=== PATIENT | male | born 1930 | race Caucasian/White ===

== ENCOUNTER → 2016-09-06 18:06 | Emergency (ER) | payer MEDICARE ==
[~2016-09-06 18:06] MED LIST: HYDROcodone/ACETAMIN 5-325 MG* 1 TAB PO ONE; Ketorolac INJ* 30 MG/ML 1 ML VIAL IV ONE
--- NOTE | 2016-09-06 20:48 | RAD ---
INDICATION: Trauma, back pain. COMPARISON: There are no prior studies available for comparison. TECHNIQUE: Contiguous axial sections were obtained beginning above the T11 vertebra and continuing through the L5-S1 disc space. Images were reconstructed in the sagittal and coronal planes. FINDINGS: There is a mild to moderate lumbar scoliosis convex toward the right in the upper lumbar region and toward the left in the lower lumbar region. There is a mild chronic appearing compression fracture involving the inferior endplate of the L1 vertebral body. No acute fracture is seen. At the L1-L2 level there is a mild broad-based disc bulge which causes mild spinal canal narrowing. There is mild neural foraminal narrowing on the left side. At the L2-L3 level there is a [id number] broad-based disc bulge and mild hypertrophic changes within the facet joints which causes mild to moderate spinal canal narrowing. There is mild bilateral neural foraminal narrowing. At the L3-L4 level there is a moderate broad-based disc bulge and mild hypertrophic changes within the facet joints which causes moderate to severe spinal canal narrowing. There is mild to moderate bilateral neural foraminal narrowing. At the L4-L5 level there is a moderate broad-based disc bulge and moderate endplate hypertrophic changes which cause severe spinal canal narrowing and moderate bilateral neural foraminal narrowing. At the L5-S1 level there is a mild broad-based disc bulge and moderate hypertrophic changes within the facet joints. There is mild spinal canal narrowing and mild to moderate bilateral neural foraminal narrowing. Incidental note is made of moderate to severe calcific plaque present within the abdominal aorta. No aneurysm is present. IMPRESSION: 1. NO EVIDENCE FOR ACUTE FRACTURE. 2. DIFFUSE DEGENERATIVE DISC DISEASE AND FACET OSTEOARTHRITIS GIVING RISE TO MILD SPINAL CANAL NARROWING AT THE L1-L2 LEVEL, MILD TO MODERATE SPINAL CANAL NARROWING AT THE L2-L3 LEVEL, MODERATE TO SEVERE SPINAL CANAL NARROWING AT THE L3-L4, SEVERE SPINAL CANAL NARROWING AT THE L4-L5 LEVEL AND MILD SPINAL CANAL NARROWING AT THE L5-S1 LEVEL.
[2016-09-06 21:56] LABS: Hematocrit 46 % (42-52); Mean Corpuscular HGB Conc 33 g/dl (31-36); Mean Corpuscular Hemoglobin 29 pg (27-31); Mean Corpuscular Volume 89 fL (80-94); Mean Platelet Volume 7 um3 (7.4-10.4); Red Blood Count 5.14 10^6/ul (4.0-5.4); Red Cell Distribution Width 15 % (10.5-15)
[2016-09-06 22:12] LABS: Albumin 4.3 g/dL (3.2-5.2); BUN/Creatinine Ratio 17.1 (8-20); Calcium 9.3 mg/dL (8.6-10.3); EGFR African American 80.8 (>60); EGFR Non-African American 62.8 (>60); Globulin 3.3 g/dL (2-4); Magnesium 2.1 mg/dL (1.9-2.7); Potassium 4.3 mmol/L (3.5-5.0); Total Bilirubin 0.6 mg/dL (0.2-1.0); Total Protein 7.6 g/dL (6.4-8.9)
[2016-09-06 22:14] LABS: Troponin I 0.01 ng/mL (<0.04)
[2016-09-06 22:56] LABS: TSH (Thyroid Stimulating Horm) 1.73 mcIU/mL (0.34-5.60)
[2016-09-06 23:47] VITALS: BP 109/74
--- NOTE | 2016-09-07 14:18 | ED ---
Jesus Thompson Matthew, scribed for Christopher Childs MD on 09/06/16 at 2118 . Back Pain - HPI Summary HPI Summary: An 86 y/o male presents to the ED with lower back pain since 17:00. The pain is worse with movement and rated 9/10 in severity. The patient states that he fell , while he was trying to put the jules into his car door. He's unsure why or how he fell, but states the next thing he knew he was on his back. He denies head trauma and loss of consciousness The patient is on Warfarin and Abx for a recent UTI. The patient has a Hx of dementia and HLD. - History of Current Complaint Chief Complaint: EDBackInjuryPain Stated Complaint: FALL/BACK PAIN Time Seen by Provider: 09/06/16 19:16 Hx Obtained From: Patient Onset/Duration: Sudden Onset, Lasting Hours, Still Present Onset/Duration: Started Days Ago, Traumatic, Still Present Timing: Constant Back Pain Location: Is Discrete @ - lower back Severity Initially: Moderate Severity Currently: Moderate Pain Intensity: 9 Pain Scale Used: 0-10 Numeric Aggravating Symptom(s): Movement Associated Signs And Symptoms: Negative: Abdominal Pain - Allergies/Home Medications Allergies/Adverse Reactions: Allergies Allergy/AdvReac Type Severity Reaction Status Date / Time No Known Allergies Allergy Verified 09/06/16 19:45 PMH/Surg Hx/FS Hx/Imm Hx Cardiovascular History: Reports: Hx Angina, Hx Atrial Fibrillation, Hx Coronary Artery Disease - 2014 SURGERY, Hx Hypercholesterolemia, Hx Hypertension - W/MEDS Denies: Hx Pacemaker/ICD Comment Only: Other Cardiovascular Problems/Disorders - FOLLOWED BY DR GUERRA Respiratory History: Reports: Hx Chronic Bronchitis, Hx Chronic Obstructive Pulmonary Disease (COPD) Sensory History: Reports: Hx Cataracts - BILATERAL, Hx Contacts or Glasses - GLASSES, Hx Hearing Problem Denies: Hx Hearing Aid Opthamlomology History: Reports: Hx Cataracts - BILATERAL, Hx Contacts or Glasses - GLASSES Neurological History: Reports: Hx Dementia - mild, Other Neuro Impairments/ Disorders - ON DAILY MEDS FOR ALZHEIMER'S Psychiatric History: Denies: Hx Panic Disorder - Surgical History Surgery Procedure, Year, and Place: APPENDIX 35 YRS AGO. 2004?? LEFT WRIST ORIF Hx Anesthesia Reactions: No - Immunization History Date of Tetanus Vaccine: Unk Date of Influenza Vaccine: Fall 2011 Infectious Disease History: No Infectious Disease History: Denies: Traveled Outside the [place] in Last 30 Days - Family History Known Family History: Positive: Cardiac Disease, Hypertension - Social History Alcohol Use: None Hx Substance Use: No Substance Use Type: Reports: None Hx Tobacco Use: Yes Smoking Status (MU): Former Smoker Type: Cigarettes Amount Used/How Often: 1PPD 50 + YEARS Have You Smoked in the Last Year: No Review of Systems Constitutional: Negative Eyes: Negative ENT: Negative Cardiovascular: Negative Respiratory: Negative Gastrointestinal: Negative Negative: Abdominal Pain Genitourinary: Negative Positive: Myalgia - lower back pain Skin: Negative Neurological: Negative Psychological: Normal All Other Systems Reviewed And Are Negative: Yes Physical Exam Triage Information Reviewed: Yes Vital Signs On Initial Exam: Initial Vitals Temp Pulse Resp BP Pulse Ox 97.4 F 84 20 153/72 98 09/06/16 18:09 09/06/16 18:09 09/06/16 18:09 09/06/16 18:09 09/06/16 18:09 Vital Signs Reviewed: Yes Appearance: Positive: Well-Appearing, No Pain Distress Skin: Positive: Warm, Skin Color Reflects Adequate Perfusion, Dry Head/Face: Positive: Normal Head/Face Inspection Eyes: Positive: Normal ENT: Positive: Normal ENT inspection Neck: Positive: Supple, Nontender Respiratory/Lung Sounds: Positive: Clear to Auscultation, Breath Sounds Present Cardiovascular: Positive: RRR Abdomen Description: Positive: Nontender, Soft Bowel Sounds: Positive: Present Musculoskeletal: Positive: Other - Mild tender over the lumbar spine; negative straight leg raise. Neurological: Positive: Normal, Sensory/Motor Intact, Alert, Oriented to Person Place, Time Psychiatric: Positive: Affect/Mood Appropriate - [place] Coma Scale Coma Scale Total: 15 Diagnostics - Vital Signs Vital Signs Temp Pulse Resp BP Pulse Ox 09/06/16 19:40 98.0 F 68 16 124/69 95 09/06/16 18:09 97.4 F 84 20 153/72 98 - Laboratory Lab Results: Lab Results 09/06/16 09/06/16 09/06/16 Range/Units 21:45 21:45 21:45 WBC 13.0 H (3.5-10.8) 10^3/ul RBC 5.14 (4.0-5.4) 10^6/ul Hgb 15.0 (14.0-18.0) g/dl Hct 46 (42-52) % MCV 89 (80-94) fL MCH 29 (27-31) pg MCHC 33 (31-36) g/dl RDW 15 (10.5-15) % Plt Count 288 (150-450) 10^3/ul MPV 7 L (7.4-10.4) um3 Neut % (Auto) 70.8 (38-83) % Lymph % (Auto) 18.5 L (25-47) % [place] % (Auto) 9.1 H (1-9) % Eos % (Auto) 1.0 (0-6) % Baso % (Auto) 0.6 (0-2) % Absolute Neuts (auto) 9.2 H (1.5-7.7) 10^3/ul Absolute Lymphs (auto) 2.4 (1.0-4.8) 10^3/ul Absolute Monos (auto) 1.2 H (0-0.8) 10^3/ul Absolute Eos (auto) 0.1 (0-0.6) 10^3/ul Absolute Basos (auto) 0.1 (0-0.2) 10^3/ul Absolute Nucleated RBC 0 10^3/ul Nucleated RBC % 0 INR (Anticoag Therapy) (0.89-1.11) Sodium 130 L (133-145) mmol/L Potassium 4.3 (3.5-5.0) mmol/L Chloride 98 L (101-111) mmol/L Carbon Dioxide 26 (22-32) mmol/L Anion Gap 6 (2-11) mmol/L BUN 19 (6-24) mg/dL Creatinine 1.11 (0.67-1.17) mg/dL Est GFR ( Amer) 80.8 (>60) Est GFR (Non-Af Amer) 62.8 (>60) BUN/Creatinine Ratio 17.1 (8-20) Glucose 102 H (70-100) mg/dL Lactic Acid 1.1 (0.5-2.0) mmol/L Calcium 9.3 (8.6-10.3) mg/dL Magnesium 2.1 (1.9-2.7) mg/dL Total Bilirubin 0.60 (0.2-1.0) mg/dL AST 27 (13-39) U/L ALT 23 (7-52) U/L Alkaline Phosphatase 90 (34-104) U/L Troponin I 0.01 (<0.04) ng/mL Total Protein 7.6 (6.4-8.9) g/dL Albumin 4.3 (3.2-5.2) g/dL Globulin 3.3 (2-4) g/dL Albumin/Globulin Ratio 1.3 (1-3) TSH 1.73 (0.34-5.60) mcIU/mL 09/06/16 Range/Units 21:45 WBC (3.5-10.8) 10^3/ul RBC (4.0-5.4) 10^6/ul Hgb (14.0-18.0) g/dl Hct (42-52) % MCV (80-94) fL MCH (27-31) pg MCHC (31-36) g/dl RDW (10.5-15) % Plt Count (150-450) 10^3/ul MPV (7.4-10.4) um3 Neut % (Auto) (38-83) % Lymph % (Auto) (25-47) % [place] % (Auto) (1-9) % Eos % (Auto) (0-6) % Baso % (Auto) (0-2) % Absolute Neuts (auto) (1.5-7.7) 10^3/ul Absolute Lymphs (auto) (1.0-4.8) 10^3/ul Absolute Monos (auto) (0-0.8) 10^3/ul Absolute Eos (auto) (0-0.6) 10^3/ul Absolute Basos (auto) (0-0.2) 10^3/ul Absolute Nucleated RBC 10^3/ul Nucleated RBC % INR (Anticoag Therapy) 2.42 H (0.89-1.11) Sodium (133-145) mmol/L Potassium (3.5-5.0) mmol/L Chloride (101-111) mmol/L Carbon Dioxide (22-32) mmol/L Anion Gap (2-11) mmol/L BUN (6-24) mg/dL Creatinine (0.67-1.17) mg/dL Est GFR ( Amer) (>60) Est GFR (Non-Af Amer) (>60) BUN/Creatinine Ratio (8-20) Glucose (70-100) mg/dL Lactic Acid (0.5-2.0) mmol/L Calcium (8.6-10.3) mg/dL Magnesium (1.9-2.7) mg/dL Total Bilirubin (0.2-1.0) mg/dL AST (13-39) U/L ALT (7-52) U/L Alkaline Phosphatase (34-104) U/L Troponin I (<0.04) ng/mL Total Protein (6.4-8.9) g/dL Albumin (3.2-5.2) g/dL Globulin (2-4) g/dL Albumin/Globulin Ratio (1-3) TSH (0.34-5.60) mcIU/mL Result Diagrams: 09/06/16 21:45 09/06/16 21:45 Lab Statement: Any lab studies that have been ordered have been reviewed, and results considered in the medical decision making process. - CT Lumbar Spine CT CT Interpretation: No Acute Changes - IMPRESSION: 1. NO EVIDENCE FOR ACUTE FRACTURE. 2. DIFFUSE DEGENERATIVE DISC DISEASE AND FACET OSTEOARTHRITIS GIVING RISE TO MILD SPINAL CANAL NARROWING AT THE L1-L2 LEVEL, MILD TO MODERATE SPINAL CANAL NARROWING AT THE L2-L3 LEVEL, MODERATE TO SEVERE SPINAL CANAL NARROWING AT THE L3-L4, SEVERE SPINAL CANAL NARROWING AT THE L4-L5 LEVEL AND MILD SPINAL CANAL NARROWING AT THE L5-S1 LEVEL. CT Interpretation Completed By: Radiologist - EKG 22:14 Cardiac Rate: NL - 76 bpm EKG Rhythm: Atrial Fibrillation EKG Interpretation: LBBB Back Pain Course/Dx - Course Course Of Treatment: Mr. Alvarez is a difficult historian as he is a bit demented but I believe this was a mechanical fall. I did monitor him and check labs to be on the safe side and they were negative. Including a troponing 5 hours after the incident. He has a lot of arthritis in his back on CT as one would expect but no acute injury and I believe this to be a strain of the low back. He seemed to do OK with a [place] and I will try that as an outpatient. - Diagnoses Provider Diagnoses: Low back strain Discharge - Discharge Plan Condition: Stable Disposition: HOME Prescriptions: HYDROcodone/ACETAMIN 5-325 MG* [[place] 5-325 TAB*] 1 tab PO Q6H PRN #20 tab MDD 4 PRN Reason: Pain Patient Education Materials: Hydrocodone/Acetaminophen (By mouth), Low Back Strain (ED) Referrals: Otf Meza MD [Primary Care Provider] - 3 Days Additional Instructions: Please follow-up with your primary care physician in 3 days. The documentation as recorded by the Jesus conner Matthew accurately reflects the service I personally performed and the decisions made by me, Christopher Childs MD.
== END | disposition home or self-care (01) ==
LOC: ED 18:06
DX: S39.012A Strain of muscle, fascia and tendon of lower back, initial encounter (principal); W19.XXXA Unspecified fall, initial encounter; Y93.9 Activity, unspecified; Y92.9 Unspecified place or not applicable; Y99.9 Unspecified external cause status; Z87.891 Personal history of nicotine dependence
CPT/HCPCS: 36415; 72131; 80053; 83605; 83735; 84443; 84484; 85025; 85610; 93005; 96374; 99283; J1885

== ENCOUNTER → 2016-09-28 08:24 | Emergency (ER) | payer MEDICARE ==
[~2016-09-28 08:24] MED LIST changes: -HYDROcodone/ACETAMIN 5-325 MG* 1 TAB PO ONE; -Ketorolac INJ* 30 MG/ML 1 ML VIAL IV ONE; +NS 0.9% 1000 ML* 2,000 ML IV ONE
[2016-09-28 08:55] LABS: Hematocrit 48 % (42-52); Hemoglobin 15.6 g/dl (14.0-18.0); Mean Corpuscular HGB Conc 33 g/dl (31-36); Mean Corpuscular Hemoglobin 29 pg (27-31); Mean Corpuscular Volume 89 fL (80-94); Mean Platelet Volume 8 um3 (7.4-10.4); Red Blood Count 5.31 10^6/ul (4.0-5.4); Red Cell Distribution Width 15 % (10.5-15); White Blood Count 11.6 10^3/ul (3.5-10.8)
[2016-09-28 09:05] LABS: Urine Bacteria Absent (Absent); Urine Bilirubin Negative (Negative); Urine Glucose Negative (Negative); Urine Nitrite Negative (Negative)
[2016-09-28 09:16] LABS: ALT 20 U/L (7-52); Albumin 4.1 g/dL (3.2-5.2); Alkaline Phosphatase 119 U/L (34-104); BUN/Creatinine Ratio 17.7 (8-20); Blood Urea Nitrogen 17 mg/dL (6-24); CO2 Carbon Dioxide 24 mmol/L (22-32); Calcium 9.4 mg/dL (8.6-10.3); Chloride 104 mmol/L (101-111); Creatine Kinase 40 U/L (10-223); EGFR African American 95.5 (>60); EGFR Non-African American 74.3 (>60); Globulin 3.5 g/dL (2-4); Glucose 95 mg/dL (70-100); Sodium 134 mmol/L (133-145); Total Protein 7.6 g/dL (6.4-8.9)
[2016-09-28 11:29] VITALS: BP 126/97
--- NOTE | 2016-09-28 17:59 | ED ---
Carolyn Thompson Alfonso, scribed for Berry Jaquez MD on 09/28/16 at 0935 . Altered Mental Status - HPI Summary HPI Summary: Level 5 caveat due to dementia and increased confusion. This pt is an 86 y.o M that presents to [facility] with AMS. Sx of dementia has worsened, with urinary incompetence and doesnt speak like my grandfather. He does not have a catheter in place. Approximately 3 weeks ago, had a UTI treated after a fall when he hurt his back. PMHx of enlarged prostate, HTN, and A-Fib. On a blood thinner and SHx of former smoker. - History Of Current Complaint Chief Complaint: EDGeneral Stated Complaint: POSS UTI/AMS Time Seen by Provider: 09/28/16 08:34 Hx Obtained From: Family/Manager Drug Hx From Patient Unobtainable Due To: Dementia Timing: Constant Severity Initially: Moderate Severity Currently: Moderate Character: Confusion Aggravating Factor(s): Nothing, Unknown Alleviating Factor(s): Nothing Associated Signs And Symptoms: Positive: Recent Trauma - Fall about 3 weeks ago. - Allergies/Home Medications Allergies/Adverse Reactions: Allergies Allergy/AdvReac Type Severity Reaction Status Date / Time No Known Allergies Allergy Verified 09/06/16 19:45 PMH/Surg Hx/FS Hx/Imm Hx Cardiovascular History: Reports: Hx Angina, Hx Atrial Fibrillation, Hx Coronary Artery Disease - 2014 SURGERY, Hx Hypercholesterolemia, Hx Hypertension - W/MEDS Denies: Hx Pacemaker/ICD Comment Only: Other Cardiovascular Problems/Disorders - FOLLOWED BY DR GUERRA Respiratory History: Reports: Hx Chronic Bronchitis, Hx Chronic Obstructive Pulmonary Disease (COPD) Sensory History: Reports: Hx Cataracts - BILATERAL, Hx Contacts or Glasses - GLASSES, Hx Hearing Problem Denies: Hx Hearing Aid Opthamlomology History: Reports: Hx Cataracts - BILATERAL, Hx Contacts or Glasses - GLASSES Neurological History: Reports: Hx Dementia - mild, Other Neuro Impairments/ Disorders - ON DAILY MEDS FOR ALZHEIMER'S Psychiatric History: Denies: Hx Panic Disorder - Surgical History Surgery Procedure, Year, and Place: APPENDIX 35 YRS AGO. 2004?? LEFT WRIST ORIF Hx Anesthesia Reactions: No - Immunization History Date of Tetanus Vaccine: Unk Date of Influenza Vaccine: Fall 2011 Infectious Disease History: No Infectious Disease History: Denies: Traveled Outside the [place] in Last 30 Days - Family History Known Family History: Positive: Cardiac Disease, Hypertension - Social History Alcohol Use: None Hx Substance Use: No Substance Use Type: Reports: None Hx Tobacco Use: Yes Smoking Status (MU): Former Smoker Type: Cigarettes Amount Used/How Often: 1PPD 50 + YEARS Have You Smoked in the Last Year: No Review of Systems - ROS Summary Review of Systems Summary: Level 5 caveat secondary to dementia and increased confusion Negative: Vomiting, Diarrhea Positive: incontinence Neurological: Other - Dementia and increased confusion Negative: Headache All Other Systems Reviewed And Are Negative: No Physical Exam - Summary Physical Exam Summary: Level 5 caveat secondary to dementia and increased confusion. The patient is well-nourished in no acute distress and in no acute pain. Pt has urinary incompetences. The skin is noted with decreased turgor. HEENT: The head is normocephalic and atraumatic. The pupils are equal and reactive. The conjunctivae are clear and without drainage. Nares are patent and without drainage. Mouth reveals dry mucous membranes and the throat is without erythema and exudate. The external ears are intact. The ear canals are patent and without drainage. The tympanic membranes are intact. Neck is supple with full range of motion and non-tender. There are no carotid bruits. There is no neck vein distension. Respiratory: Chest is non-tender. Lungs are clear to auscultation and breath sounds are symmetrical and equal. Cardiovascular: Heart is irregular rate and rhythm. There is no murmur or rub auscultated. There is no peripheral edema and pulses are symmetrical and equal. Capillary refills 2 seconds Abdomen: The abdomen is soft and non-tender. There are normal bowel sounds heard in all four quadrants and there is no organomegaly palpated. Musculoskeletal: There is no back pain noted. Extremities are non-tender with full range of motion. There is good capillary refill. There is no peripheral edema or calf tenderness elicited. Neurological: Patient is alert and oriented to person, place and time. The patient has symmetrical motor strength in all four extremities. Cranial nerves are grossly intact. Deep tendon reflexes are symmetrical and equal in all four extremities.Not oriented to time. Psychiatric: The patient has an appropriate affect and does not exhibit any anxiety or depression. Triage Information Reviewed: Yes Vital Signs On Initial Exam: Initial Vitals Temp Pulse Resp BP Pulse Ox 96.3 F 67 20 135/68 99 09/28/16 08:28 06/04/17 08:28 09/28/16 08:28 09/28/16 08:28 09/28/16 08:28 Vital Signs Reviewed: Yes - [place] Coma Scale Coma Scale Total: 14 Diagnostics - Vital Signs Vital Signs Temp Pulse Resp BP Pulse Ox 09/28/16 08:30 96.4 F 81 20 135/68 100 09/28/16 08:28 96.3 F 67 20 135/68 99 - Laboratory Lab Results: Lab Results 09/28/16 09/28/16 09/28/16 Range/Units 08:45 08:45 08:45 WBC 11.6 H (3.5-10.8) 10^3/ul RBC 5.31 (4.0-5.4) 10^6/ul Hgb 15.6 (14.0-18.0) g/dl Hct 48 (42-52) % MCV 89 (80-94) fL MCH 29 (27-31) pg MCHC 33 (31-36) g/dl RDW 15 (10.5-15) % Plt Count 313 (150-450) 10^3/ul MPV 8 (7.4-10.4) um3 Neut % (Auto) 66.9 (38-83) % Lymph % (Auto) 22.7 L (25-47) % [place] % (Auto) 7.6 (1-9) % Eos % (Auto) 1.7 (0-6) % Baso % (Auto) 1.1 (0-2) % Absolute Neuts (auto) 7.8 H (1.5-7.7) 10^3/ul Absolute Lymphs (auto) 2.6 (1.0-4.8) 10^3/ul Absolute Monos (auto) 0.9 H (0-0.8) 10^3/ul Absolute Eos (auto) 0.2 (0-0.6) 10^3/ul Absolute Basos (auto) 0.1 (0-0.2) 10^3/ul Absolute Nucleated RBC 0.01 10^3/ul Nucleated RBC % 0.1 INR (Anticoag Therapy) (0.89-1.11) Sodium 134 (133-145) mmol/L Potassium Pending Chloride 104 (101-111) mmol/L Carbon Dioxide 24 (22-32) mmol/L Anion Gap Pending BUN 17 (6-24) mg/dL Creatinine 0.96 (0.67-1.17) mg/dL Est GFR ( Amer) 95.5 (>60) Est GFR (Non-Af Amer) 74.3 (>60) BUN/Creatinine Ratio 17.7 (8-20) Glucose 95 (70-100) mg/dL Lactic Acid 1.1 (0.5-2.0) mmol/L Calcium 9.4 (8.6-10.3) mg/dL Magnesium Pending Total Bilirubin 0.70 (0.2-1.0) mg/dL AST Pending ALT 20 (7-52) U/L Alkaline Phosphatase 119 H (34-104) U/L Total Creatine Kinase 40 (10-223) U/L Troponin I 0.00 (<0.04) ng/mL Total Protein 7.6 (6.4-8.9) g/dL Albumin 4.1 (3.2-5.2) g/dL Globulin 3.5 (2-4) g/dL Albumin/Globulin Ratio 1.2 (1-3) Urine Color Urine Appearance Urine pH (5-9) Ur Specific [place] (1.010-1.030) Urine Protein (Negative) Urine Ketones (Negative) Urine Blood (Negative) Urine Nitrate (Negative) Urine Bilirubin (Negative) Urine Urobilinogen (Negative) Ur Leukocyte Esterase (Negative) Urine WBC (Auto) (Absent) Urine RBC (Auto) (Absent) Ur Squamous Epith Cells (Absent) Urine Bacteria (Absent) Urine Glucose (Negative) 09/28/16 09/28/16 Range/Units 08:45 08:50 WBC (3.5-10.8) 10^3/ul RBC (4.0-5.4) 10^6/ul Hgb (14.0-18.0) g/dl Hct (42-52) % MCV (80-94) fL MCH (27-31) pg MCHC (31-36) g/dl RDW (10.5-15) % Plt Count (150-450) 10^3/ul MPV (7.4-10.4) um3 Neut % (Auto) (38-83) % Lymph % (Auto) (25-47) % [place] % (Auto) (1-9) % Eos % (Auto) (0-6) % Baso % (Auto) (0-2) % Absolute Neuts (auto) (1.5-7.7) 10^3/ul Absolute Lymphs (auto) (1.0-4.8) 10^3/ul Absolute Monos (auto) (0-0.8) 10^3/ul Absolute Eos (auto) (0-0.6) 10^3/ul Absolute Basos (auto) (0-0.2) 10^3/ul Absolute Nucleated RBC 10^3/ul Nucleated RBC % INR (Anticoag Therapy) 1.71 H (0.89-1.11) Sodium (133-145) mmol/L Potassium Chloride (101-111) mmol/L Carbon Dioxide (22-32) mmol/L Anion Gap BUN (6-24) mg/dL Creatinine (0.67-1.17) mg/dL Est GFR ( Amer) (>60) Est GFR (Non-Af Amer) (>60) BUN/Creatinine Ratio (8-20) Glucose (70-100) mg/dL Lactic Acid (0.5-2.0) mmol/L Calcium (8.6-10.3) mg/dL Magnesium Total Bilirubin (0.2-1.0) mg/dL AST ALT (7-52) U/L Alkaline Phosphatase (34-104) U/L Total Creatine Kinase (10-223) U/L Troponin I (<0.04) ng/mL Total Protein (6.4-8.9) g/dL Albumin (3.2-5.2) g/dL Globulin (2-4) g/dL Albumin/Globulin Ratio (1-3) Urine Color Yellow Urine Appearance Clear Urine pH 6.0 (5-9) Ur Specific [place] 1.013 (1.010-1.030) Urine Protein Negative (Negative) Urine Ketones Negative (Negative) Urine Blood 2+ H (Negative) Urine Nitrate Negative (Negative) Urine Bilirubin Negative (Negative) Urine Urobilinogen Negative (Negative) Ur Leukocyte Esterase Trace H (Negative) Urine WBC (Auto) 1+(6-10/hpf) H (Absent) Urine RBC (Auto) 1+(3-5/hpf) H (Absent) Ur Squamous Epith Cells Present H (Absent) Urine Bacteria Absent (Absent) Urine Glucose Negative (Negative) Result Diagrams: 09/28/16 08:45 09/28/16 08:45 Lab Statement: Any lab studies that have been ordered have been reviewed, and results considered in the medical decision making process. Re-Evaluation - Re-Evaluation First Eval Re-Evaluation Time: 10:53 Change: Unchanged Comment: Spoke with family members regarding discharge. Granddaughter is requesting MOLST form to be completed. Altered Mental Statu Course/Dx - Course Assessment/Plan: The patient presented to [facility] for dementia and urinary incontinence. Spoke with the family which filled out the MOLST form with DNR, DNI, and comfort care only directive. Patient will be sent home with diagnoses of UTI and prescription of Cipro. - Diagnoses Differential Diagnosis/HQI/PQRI: Hypoglycemia, Medication Reaction, Metabolic Disorder Discharge Diagnoses: UTI (urinary tract infection) Discharge - Discharge Plan Condition: Stable Disposition: HOME Prescriptions: Ciprofloxacin TAB* [Cipro 500 MG TAB*] 500 mg PO BID #20 tab Patient Education Materials: Ciprofloxacin (By mouth), Urinary Tract Infection in Men (ED) Referrals: Otf Meza MD [Primary Care Provider] - 2 Days The documentation as recorded by the Carolyn conner Alfonso accurately reflects the service I personally performed and the decisions made by me, Berry Jaquez MD.
== END | disposition home or self-care (01) ==
LOC: ED 08:24
DX: N39.0 Urinary tract infection, site not specified (principal); Z87.891 Personal history of nicotine dependence
CPT/HCPCS: 36415; 80053; 81003; 81015; 82550; 83605; 84484; 85025; 85610; 87077; 87086; 87186; 93005; 99283

== ENCOUNTER 2016-10-04 08:41 | Emergency (ER) | payer OTHER ==
[2016-10-04 08:46] VITALS: BP 157/82
--- NOTE | 2016-10-04 09:28 | RAD ---
HISTORY: Right hand and wrist pain, subacute trauma COMPARISONS: December 30, 2003 VIEWS: 4, Frontal and lateral views of the right hand and wrist FINDINGS: BONE DENSITY: Normal. 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 SOFT TISSUES: Unremarkable. OTHER FINDINGS: None. IMPRESSION: MINIMALLY DISPLACED FRACTURE OF THE THIRD METACARPAL
--- NOTE | 2016-10-05 17:10 | ED ---
Coy Thompson Aidan, scribed for Yandel Mao MD on 10/04/16 at 0908 . Upper Extremity Pain - HPI Summary HPI Summary: 86 y/o male presents to the ED with a complaint of acute, constant, moderate right hand pain with associated ecchymosis and swelling that resulted from him stepping on his hand S/P losing his balance and falling 4 days ago. Pt denies any head injury or LOC. He is currently on Coumadin. There are no other associates signs or symptoms. - History of Current Complaint Chief Complaint: EDExtremityUpper Stated Complaint: HAND INJURY FALL Time Seen by Provider: 10/04/16 08:53 Hx Obtained From: Patient Mechanism Of Injury: Fall From Height Of: - Pt fell, when he was getting up, he accidently stepped on his hand causing his hand injury Onset/Duration: Started Days Ago, Traumatic, Still Present Timing: Constant Severity Initially: Moderate Severity Currently: Moderate Pain Location: Hand - right hand Character: Throbbing Aggravating Factor(s): Other - unknown Alleviating Factor(s): Other - unknown Associated Signs & Symptoms: Positive: Swelling, Bruising Related History: Dominant Hand Right - Risk Factors DVT Risk Factors: Smoking - former smoker - Allergies/Home Medications Allergies/Adverse Reactions: Allergies Allergy/AdvReac Type Severity Reaction Status Date / Time No Known Allergies Allergy Verified 10/04/16 08:44 PMH/Surg Hx/FS Hx/Imm Hx Cardiovascular History: Reports: Hx Angina, Hx Atrial Fibrillation, Hx Coronary Artery Disease - 2014 SURGERY, Hx Hypercholesterolemia, Hx Hypertension - W/MEDS Denies: Hx Pacemaker/ICD Comment Only: Other Cardiovascular Problems/Disorders - FOLLOWED BY DR GUERRA Respiratory History: Reports: Hx Chronic Bronchitis, Hx Chronic Obstructive Pulmonary Disease (COPD) Sensory History: Reports: Hx Cataracts - BILATERAL, Hx Contacts or Glasses - GLASSES, Hx Hearing Problem Denies: Hx Hearing Aid Opthamlomology History: Reports: Hx Cataracts - BILATERAL, Hx Contacts or Glasses - GLASSES Neurological History: Reports: Hx Dementia - mild, Other Neuro Impairments/ Disorders - ON DAILY MEDS FOR ALZHEIMER'S Psychiatric History: Denies: Hx Panic Disorder - Surgical History Surgery Procedure, Year, and Place: APPENDIX 35 YRS AGO. 2004?? LEFT WRIST ORIF Hx Anesthesia Reactions: No - Immunization History Date of Tetanus Vaccine: Unk Date of Influenza Vaccine: Fall 2011 Infectious Disease History: No Infectious Disease History: Denies: Traveled Outside the [place] in Last 30 Days - Family History Known Family History: Positive: Cardiac Disease, Hypertension - Social History Occupation: Retired Lives: Alone Alcohol Use: None Hx Substance Use: No Substance Use Type: Reports: None Hx Tobacco Use: Yes Smoking Status (MU): Former Smoker Type: Cigarettes Amount Used/How Often: 1PPD 50 + YEARS Have You Smoked in the Last Year: No Review of Systems Constitutional: Negative Eyes: Negative ENT: Negative Cardiovascular: Negative Respiratory: Negative Gastrointestinal: Negative Genitourinary: Negative Positive: Myalgia - right hand pain with associated bruising and swelling Skin: Negative Neurological: Negative Psychological: Normal All Other Systems Reviewed And Are Negative: Yes Physical Exam - Summary Physical Exam Summary: VITAL SIGNS: Reviewed. GENERAL: Patient is a well developed and nourished who is lying comfortable in the stretcher. Patient is not in any acute respiratory distress or distress otherwise. HEAD AND FACE: Normocephalic, no signs of trauma or hematoma EYES: PERRLA, EOMI x 2. EARS: Hearing grossly intact. MOUTH: Oropharynx within normal limits. NECK: Supple, trachea is midline, no adenopathy, no JVD, no carotid bruit. CHEST: Symmetric, no tenderness at palpation, lungs clear LUNGS: Clear to auscultation bilaterally. No wheezing or crackles. CVS: Regular rate and rhythm, S1 and S2 present, no murmurs or gallops appreciated. ABDOMEN: Soft, non-tender. Bowel sounds are normal. No abdominal abnormal pulsations. EXTREMITIES: Full ROM in all major joints, no edema, no cyanosis or clubbing. Extremity swelling of right hand and right wrist, neurovascularly intact NEURO: Alert and oriented x 3. No acute neurological deficits. Speech is normal and follows commands. SKIN: Dry and warm Triage Information Reviewed: Yes Vital Signs On Initial Exam: Initial Vitals Temp Pulse Resp BP Pulse Ox 97.2 F 70 18 157/82 99 10/04/16 08:44 10/04/16 08:44 10/04/16 08:44 10/04/16 08:44 10/04/16 08:44 Vital Signs Reviewed: Yes Procedures - Splinting Location: Right hand, fracture at 3rd metacarpal Splint: wrist - right hand and wrist Pre-Proc Neuro Vasc Exam: normal Post-Proc Neuro Vasc Exam: normal Diagnostics - Vital Signs Vital Signs Temp Pulse Resp BP Pulse Ox 10/04/16 08:44 97.2 F 70 18 157/82 99 - Laboratory Lab Statement: Any lab studies that have been ordered have been reviewed, and results considered in the medical decision making process. - Radiology WRIST X-RAY Xray Interpretation: Positive (See Comments) - IMPRESSION: MINIMALLY DISPLACED FRACTURE OF THE THIRD METACARPAL Radiology Interpretation Completed By: Radiologist HAND X-RAY Xray Interpretation: Positive (See Comments) - IMPRESSION: MINIMALLY DISPLACED FRACTURE OF THE THIRD METACARPAL Radiology Interpretation Completed By: Radiologist Course/Dx - Course Course Of Treatment: 86 y/o male presents with right hand pain with associated ecchymosis and swelling that resulted from him stepping on his hand 4 days ago. Imaging revealed a minimally displaced fracture of the third metacarpal. We placed a splint with no complications. After the splint, the upper extremity was still neurovascularly intact. Follow up with orthopedics is recommended. Patient will be discharged home. He was instructed to return to the ED if he develops more pain, swelling, or a fever. I discussed all the findings and test results with the patient. Patient was instructed to return to the emergency room immediately if any of the symptoms return or worsens. Plan of care was discussed with the patient and understands and agrees. All questions were answered at patient satisfaction. There were no further complaints or concerns. Lung exam before discharge: CTA B/L. Good air exchange. No wheezing or crackles heard. CVS: S1 and S2 present. No murmurs appreciated. Patient is alert and oriented x 3. Patient is hemodynamically stable. Patient will be discharged home with follow up PCP in the next 2-3 days - Diagnoses Differential Diagnosis/HQI/PQRI: Positive: Fracture (Closed), Strain, Sprain Provider Diagnoses: Fracture of third metacarpal bone of right hand Discharge - Discharge Plan Condition: Stable Disposition: HOME Discharge Disposition Comment: Please follow up with orthopedics within 3 days. Patient Education Materials: Hand Fracture (ED) Referrals: Otf Meza MD [Primary Care Provider] - Tunde Neal MD [Medical Doctor] - The documentation as recorded by the Coy conner Aidan accurately reflects the service I personally performed and the decisions made by me, Yandel Mao MD.
== END 2016-10-04 10:39 | disposition home or self-care (01) ==
LOC: ED 08:41
DX: S62.302A Unspecified fracture of third metacarpal bone, right hand, initial encounter for closed fracture (principal); W19.XXXA Unspecified fall, initial encounter; Y93.9 Activity, unspecified; Y92.9 Unspecified place or not applicable; Y99.9 Unspecified external cause status; R60.0 Localized edema; Z79.01 Long term (current) use of anticoagulants; Z87.891 Personal history of nicotine dependence
CPT/HCPCS: 99282

== ENCOUNTER 2016-11-10 10:16 | Emergency (ER) | payer OTHER ==
[2016-11-10 12:35] VITALS: BP 123/66
--- NOTE | 2016-11-10 12:53 | RAD ---
INDICATION: Injury middle finger. Fall on concrete steps. COMPARISON: October 04, 2016 radiographs. TECHNIQUE: AP, lateral, and oblique views RIGHT hand. REPORT: Oblique fracture through the diaphysis of the third metacarpal with one bone width mild dorsal displacement. No additional fractures evident. Normal articular alignment. Mild polyarticular osteoarthritis. Soft tissue swelling most prominent over the dorsum of the hand at the level of the metacarpals and metacarpal phalangeal joints. IMPRESSION: Oblique fracture through the diaphysis of the third metacarpal with one bone width mild dorsal displacement.
[2016-11-10 13:05] LABS: Hematocrit 44 % (42-52); Hemoglobin 14.4 g/dl (14.0-18.0); Mean Corpuscular HGB Conc 33 g/dl (31-36); Mean Corpuscular Hemoglobin 30 pg (27-31); Mean Corpuscular Volume 92 fL (80-94); Mean Platelet Volume 8 um3 (7.4-10.4); Red Blood Count 4.81 10^6/ul (4.0-5.4); Red Cell Distribution Width 15 % (10.5-15); White Blood Count 11.1 10^3/ul (3.5-10.8)
--- NOTE | 2016-11-10 13:13 | RAD ---
INDICATION: Fall. Right hip pain. COMPARISON: Pelvis and left hip September 09, 2016 TECHNIQUE: Noncontrast axial source images were obtained from the iliac crests through the symphysis pubis. FINDINGS: There are no CT abnormalities of the bony pelvis. The prostate is enlarged and lobular projecting to the bladder. Suggest further clinical evaluation/management if this represent a previously undiagnosed finding. No free fluid or adenopathy is seen. The noncontrast CT appearance of the bowel is remarkable for extensive diverticula. The superficial soft tissues appear normal. The bladder appears normal. There is a large impression upon the bladder by the enlarged prostate. There are extensive vascular calcification. IMPRESSION: NO ACUTE BONY FINDINGS. PROSTATIC ENLARGEMENT WITH IMPRESSION ON THE BLADDER (SEE ABOVE).
[2016-11-10 13:20] LABS: Albumin 3.8 g/dL (3.2-5.2); BUN/Creatinine Ratio 19.1 (8-20); Calcium 8.8 mg/dL (8.6-10.3); EGFR African American 104.2 (>60); Globulin 2.8 g/dL (2-4); Total Bilirubin 0.6 mg/dL (0.2-1.0); Total Protein 6.6 g/dL (6.4-8.9)
--- NOTE | 2016-11-10 19:08 | ED ---
Goldie Thompson Seung-Jae, scribed for Berry Jaquez MD on 11/10/16 at 1613 . Adult Trauma - HPI Summary HPI Summary: Pt is a 86 y/o M presenting to the ED with c/o injury to right groin area due to mechanical fall in a stairwell. While walking down stairwell he had fallen up his behind and injured himself in the groin area. Pt also has injured his right middle finger in the fall. Positive difficulty walking due to pain. Pain is located at right groin to upper thigh area. He denies any ZAIDI, neck pain, and bruising. No head injury. PMHx includes dementia, HTN, and afib, which is controlled with warfarin. Pt is a former smoker and former drinker. Pt states that he has been abstaining since 8-9 years ago. - History of Current Complaint Chief Complaint: EDAbdPain Stated Complaint: RT GROIN PAIN Time Seen by Provider: 11/10/16 11:46 Hx Obtained From: Patient, Family/Emissions Inspector - and daughter present at bedside, Medical Records Mechanism of Injury: Blunt Trauma Loss of Consciousness: no loss of consciousness Pain Intensity: 0 Pain Scale Used: 0-10 Numeric Character: Dull Aggravating Factor(s): Nothing Alleviating Factor(s): Nothing Associated Signs & Symptoms: Negative: SOB, Chest Pain, Abdominal Pain, Loss of Consciousness - Additional Pertinent History Primary Care Physician: [id number] - Allergy/Home Medications Allergies/Adverse Reactions: Allergies Allergy/AdvReac Type Severity Reaction Status Date / Time No Known Allergies Allergy Verified 10/04/16 08:44 PMH/Surg Hx/FS Hx/Imm Hx Cardiovascular History: Reports: Hx Angina, Hx Atrial Fibrillation, Hx Coronary Artery Disease - 2014 SURGERY, Hx Hypercholesterolemia, Hx Hypertension - W/MEDS Denies: Hx Pacemaker/ICD Comment Only: Other Cardiovascular Problems/Disorders - FOLLOWED BY DR GUERRA Respiratory History: Reports: Hx Chronic Bronchitis, Hx Chronic Obstructive Pulmonary Disease (COPD) Sensory History: Reports: Hx Cataracts - BILATERAL, Hx Contacts or Glasses - GLASSES, Hx Hearing Problem Denies: Hx Hearing Aid Opthamlomology History: Reports: Hx Cataracts - BILATERAL, Hx Contacts or Glasses - GLASSES Neurological History: Reports: Hx Dementia - mild, Other Neuro Impairments/ Disorders - ON DAILY MEDS FOR ALZHEIMER'S Psychiatric History: Denies: Hx Panic Disorder - Surgical History Surgery Procedure, Year, and Place: APPENDIX 35 YRS AGO. 2004?? LEFT WRIST ORIF Hx Anesthesia Reactions: No - Immunization History Date of Tetanus Vaccine: Unk Date of Influenza Vaccine: Fall 2011 Infectious Disease History: No Infectious Disease History: Denies: Traveled Outside the [place] in Last 30 Days - Family History Known Family History: Positive: Cardiac Disease, Hypertension - Social History Alcohol Use: None Hx Substance Use: No Substance Use Type: Reports: None Hx Tobacco Use: Yes Smoking Status (MU): Former Smoker Type: Cigarettes Amount Used/How Often: 1PPD 50 + YEARS Have You Smoked in the Last Year: No Review of Systems Negative: Fever Negative: Other - negative neck pain Positive: Other - right middle finger and right groin injury Negative: Bruising Negative: Headache All Other Systems Reviewed And Are Negative: Yes Physical Exam - Summary Physical Exam Summary: The patient is well-nourished in no acute distress and in no acute pain. The skin is warm and dry and skin color reflects adequate perfusion. No blood under nail. HEENT: The head is normocephalic and atraumatic. The pupils are equal and reactive. The conjunctivae are clear and without drainage. Nares are patent and without drainage. Mouth reveals moist mucous membranes and the throat is without erythema and exudate. The external ears are intact. The ear canals are patent and without drainage. The tympanic membranes are intact. Neck is supple with full range of motion and non-tender. There are no carotid bruits. There is no neck vein distension. Respiratory: Chest is non-tender. Lungs are clear to auscultation and breath sounds are symmetrical and equal. Cardiovascular: Irregular heart rhythm. There is no murmur or rub auscultated. There is no peripheral edema and pulses are symmetrical and equal. Abdomen: The abdomen is soft and non-tender. There are normal bowel sounds heard in all four quadrants and there is no organomegaly palpated. Musculoskeletal: There is no back pain noted. Tender in right groin area. There is good capillary refill. There is no peripheral edema or calf tenderness elicited. Middle finger hemorrhargic vesicle. CEM sign negative, no pain with abduction, adduction, flexion, and extension. Neurological: Patient is alert and oriented to person, place and time. The patient has symmetrical motor strength in all four extremities. Cranial nerves are grossly intact. Deep tendon reflexes are symmetrical and equal in all four extremities. Psychiatric: The patient has an appropriate affect and does not exhibit any anxiety or depression. Triage Information Reviewed: Yes Vital Signs On Initial Exam: Initial Vitals Temp Pulse Resp BP Pulse Ox 97.7 F 66 16 141/67 95 11/10/16 10:34 11/10/16 10:34 11/10/16 10:34 11/10/16 10:34 11/10/16 10:34 Vital Signs Reviewed: Yes - [place] Coma Scale Coma Scale Total: 15 Diagnostics - Vital Signs Vital Signs Temp Pulse Resp BP Pulse Ox 11/10/16 11:19 97.3 F 67 19 108/51 95 11/10/16 10:34 97.7 F 66 16 141/67 95 - Laboratory Lab Results: Lab Results 11/10/16 11/10/16 11/10/16 Range/Units 12:42 12:42 12:42 WBC 11.1 H (3.5-10.8) 10^3/ul RBC 4.81 (4.0-5.4) 10^6/ul Hgb 14.4 (14.0-18.0) g/dl Hct 44 (42-52) % MCV 92 (80-94) fL MCH 30 (27-31) pg MCHC 33 (31-36) g/dl RDW 15 (10.5-15) % Plt Count 237 (150-450) 10^3/ul MPV 8 (7.4-10.4) um3 Neut % (Auto) 73.2 (38-83) % Lymph % (Auto) 16.3 L (25-47) % Carson % (Auto) 8.1 (1-9) % Eos % (Auto) 1.9 (0-6) % Baso % (Auto) 0.5 (0-2) % Absolute Neuts (auto) 8.1 H (1.5-7.7) 10^3/ul Absolute Lymphs (auto) 1.8 (1.0-4.8) 10^3/ul Absolute Monos (auto) 0.9 H (0-0.8) 10^3/ul Absolute Eos (auto) 0.2 (0-0.6) 10^3/ul Absolute Basos (auto) 0.1 (0-0.2) 10^3/ul Absolute Nucleated RBC 0 10^3/ul Nucleated RBC % 0 INR (Anticoag Therapy) 2.70 H (0.89-1.11) Sodium 134 (133-145) mmol/L Potassium 4.0 (3.5-5.0) mmol/L Chloride 104 (101-111) mmol/L Carbon Dioxide 26 (22-32) mmol/L Anion Gap 4 (2-11) mmol/L BUN 17 (6-24) mg/dL Creatinine 0.89 (0.67-1.17) mg/dL Est GFR ( Amer) 104.2 (>60) Est GFR (Non-Af Amer) 81.0 (>60) BUN/Creatinine Ratio 19.1 (8-20) Glucose 113 H (70-100) mg/dL Calcium 8.8 (8.6-10.3) mg/dL Total Bilirubin 0.60 (0.2-1.0) mg/dL AST 18 (13-39) U/L ALT 18 (7-52) U/L Alkaline Phosphatase 85 (34-104) U/L Total Protein 6.6 (6.4-8.9) g/dL Albumin 3.8 (3.2-5.2) g/dL Globulin 2.8 (2-4) g/dL Albumin/Globulin Ratio 1.4 (1-3) Result Diagrams: 11/10/16 12:42 11/10/16 12:42 Lab Statement: Any lab studies that have been ordered have been reviewed, and results considered in the medical decision making process. - Radiology Hand XR Xray Interpretation: Positive (See Comments) - Impression: Oblique fx through the diaphysis of the third metacarpal with one bone width mild dorsal displacement. Radiology Interpretation Completed By: Radiologist - CT Pelvis CT CT Interpretation: No Acute Changes - Impression: no acute bony findings. prostatic enlargement with impression on the bladder. CT Interpretation Completed By: Radiologist Adult Trauma Course/Dx - Course Assessment/Plan: Pt is a 86 y/o M presenting to the ED with c/o injury to right groin area due to mechanical fall in a stairwell. While walking down stairwell he had fallen up his behind and injured himself in the groin area. Pt also has injured his right middle finger in the fall. Positive difficulty walking due to pain. Pain is located at right groin to upper thigh area. He denies any ZAIDI, neck pain, and bruising. No head injury. Via Hand XR an oblique fx through the diaphysis of the third metacarpal with one bone width mild dorsal displacement was found. Via Pelvis CT no acute bony findings. prostatic enlargement with impression on the bladder. - Diagnoses Differential Diagnosis/HQI/PQRI: Positive: Fracture, Hematoma(s) Provider Diagnoses: Right groin pain, old fracture of right hand Discharge - Discharge Plan Condition: Stable Disposition: HOME Patient Education Materials: Groin Pain (ED), Hand Fracture (ED) Referrals: Otf Meza MD [Primary Care Provider] - The documentation as recorded by the Goldie conner Seung-Jae accurately reflects the service I personally performed and the decisions made by , Berry Jaquez MD.
== END 2016-11-10 14:24 | disposition home or self-care (01) ==
LOC: ED 10:16
DX: R10.31 Right lower quadrant pain (principal); Z87.891 Personal history of nicotine dependence
CPT/HCPCS: 36415; 72192; 80053; 85025; 85610; 99283